=== PATIENT | female | born 1955 | race Caucasian/White ===

== ENCOUNTER 2017-09-10 09:08 | Emergency (ER) | payer BC ==
[2017-09-10 09:38] VITALS: BP 190/97
--- NOTE | 2017-09-10 11:19 | UC ---
Skin Complaint HPI - HPI Summary HPI Summary: Patient presents to the urgent care with chief complaint of 2 small ulcerations to the right volar side of the forearm. She states she was in poison leta a few days ago, and had scrubbed the vesicles off last night which created 2 small ulcers. She has been using an [id number] calamine lotion/poison leta treatment and was concerned that it had gotten into the ulcer. She is concerned due to the fact this medication is to the for topical use only. She has applied Band-Aids over the past 2 days over the ulcers. Denies any itching or pain. Denies any erythema or warmth around the ulcers. - History of Current Complaint Chief Complaint: UCSkin Time Seen by Provider: 09/10/17 10:03 Stated Complaint: SKIN COMPLAINT Hx Obtained From: Patient ?: No Onset/Duration: Sudden Onset Skin Exposure Onset/Duration: Hours Ago Timing: Constant Onset Severity: Mild Current Severity: Mild Pain Intensity: 1 Pain Scale Used: 0-10 Numeric Location: Other - forearm Character: Redness Aggravating Factor(s): Nothing Alleviating Factor(s): OTC Meds, Antihistamines, Cold Compresses Associated Signs & Symptoms: Positive: Negative Related History: Possible Reaction to: Environmental Exposure - Allergy/Home Medications Allergies/Adverse Reactions: Allergies Allergy/AdvReac Type Severity Reaction Status Date / Time No Known Allergies Allergy Verified 09/10/17 09:24 Home Medications: Home Medications Pramoxine HCl/Calamine [Calamine Medicated Lotion] 177 ml TP ONCE 09/10/17 [ History Confirmed 09/10/17] Review of Systems Constitutional: Negative Skin: Other - 2 small ulcers to the R forearm Respiratory: Negative Cardiovascular: Negative Motor: Negative Neurovascular: Negative Musculoskeletal: Negative Neurological: Negative Is Patient Immunocompromised?: No All Other Systems Reviewed And Are Negative: Yes PMH/Surg Hx/FS Hx/Imm Hx Previously Healthy: Yes Other History Of: Negative For: Anticoagulant Therapy - Surgical History Surgical History: Yes Surgery Procedure, Year, and Place: 1981 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 2006 LAPAROSCOPIC CHOLECYSTECTOMY, [facility] [place]. jan 2012-screw and pins to left great toe - Social History Occupation: Unemployed Lives: With Family Alcohol Use: None Substance Use Type: None Smoking Status (MU): Former Smoker Physical Exam Triage Information Reviewed: Yes Appearance: Well-Appearing, No Pain Distress, Well-Nourished Vital Signs: Initial Vital Signs Temp 97.9 F 09/10/17 09:28 Pulse 76 09/10/17 09:28 Resp 18 09/10/17 09:28 BP 190/97 09/10/17 09:28 Pulse Ox 97 09/10/17 09:28 Vital Signs Reviewed: Yes Eye Exam: Normal Eyes: Positive: Conjunctiva Clear Neck exam: Normal Neck: Positive: Supple, No Lymphadenopathy Respiratory Exam: Normal Respiratory: Positive: Chest non-tender Musculoskeletal Exam: Normal Musculoskeletal: Positive: Strength Intact Neurological: Positive: Alert, Muscle Tone Normal Psychological: Positive: Normal Response To Family Skin: Positive: significant lesion(s) - 2 small ulcers to the forearm from broken blisters Course/Dx - Course Course Of Treatment: 1 small ulcer is 1 cm in diameter, one small ulcer is approximately 0.3 cm. I have advised antibiotic ointment to the area and cover with a Band-Aid. I have discussed not popping the vesicles due to worsening symptoms. She is able to continue with the calamine lotion/poison leta treatment around the wounds to the other vesicles. - Diagnoses Provider Diagnoses: Ulceration Discharge - Sign-Out/Discharge Documenting (check all that apply): Discharge/Admit/Transfer - Discharge Plan Condition: Stable Disposition: HOME Patient Education Materials: Poison Leta (ED), Cold Compress or Soak (ED) Referrals: Rafaela Mejia MD [Primary Care Provider] - Additional Instructions: Antibiotic ointment to the area and cover with bandaid Do not scrub If there are vesicles/blisters - do not break these open Cover with a bandage until all begin to heal Do not scratch May continue with over the counter cream - Billing Disposition and Condition Condition: STABLE Disposition: HOME
== END 2017-09-10 10:25 | disposition home or self-care (01) ==
LOC: UCEAST 09:08
DX: L98.499 Non-pressure chronic ulcer of skin of other sites with unspecified severity (principal); Z87.891 Personal history of nicotine dependence
CPT/HCPCS: 99211; G0463

== ENCOUNTER 2019-08-07 12:46 | Emergency (ER) | payer MEDICARE, BC ==
--- NOTE | 2019-08-07 13:22 | UC ---
Lower Extremity/Ankle HPI - HPI Summary HPI Summary: 64 y/o female presents to the urgent care c/o medial aspect of her Left knee pain s/p twisting her knee while doing shopping. Pt reports Hx of DVT on the same knee and she Hx of varicose veins in the same area. Pt states pain at rest is 0/10 and 5/10 when she walks. Pt is concern about DVT. She takes baby aspirin daily. She has not taken anything to alleviate symptoms. Pt denies bruise, swelling over her left knee, calf pain, SOB, chest pain, COTTON, dizziness, visual changes, abdominal pain, N/V/D, fever, cough, or sick contacts. Pt declines pain medication for now. - History of Current Complaint Chief Complaint: UCLowerExtremity Stated Complaint: LEG PAIN Time Seen by Provider: 08/07/19 13:20 Hx Obtained From: Patient ?: No Onset/Duration: Sudden Onset, Lasting Hours - 4 hrs, Still Present Severity Initially: Mild Severity Currently: Mild Pain Intensity: 5 - w/ movement Pain Scale Used: 0-10 Numeric Aggravating Factor(s): Ambulation Alleviating Factor(s): Rest - Pain at rest is 0/10 Able to Bear Weight: Yes - Risk Factors Gout Risk Factors: Negative DVT Risk Factors: Prior DVT Septic Arthritis Risk Factor: Negative - Allergies/Home Medications Allergies/Adverse Reactions: Allergies Allergy/AdvReac Type Severity Reaction Status Date / Time No Known Allergies Allergy Verified 08/07/19 13:10 Home Medications: Home Medications Aspirin [Aspirin Low Dose] 81 mg PO DAILY 11/23/14 [History Confirmed 08/07/19] PMH/Surg Hx/FS Hx/Imm Hx Previously Healthy: Yes Cardiovascular History: Deep Vein Thrombosis Other History Of: Negative For: Anticoagulant Therapy - Surgical History Surgical History: Yes Surgery Procedure, Year, and Place: 1981 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 2006 LAPAROSCOPIC CHOLECYSTECTOMY, [facility] [place]. jan 2012-screw and pins to left great toe - Family History Known Family History: Positive: Cardiac Disease, Hypertension - Social History Occupation: Retired Lives: With Family Alcohol Use: None Substance Use Type: None Smoking Status (MU): Former Smoker Length of Time of Smoking/Using Tobacco: 20 years When Did the Patient Quit Smoking/Using Tobacco: 2011 Review of Systems All Other Systems Reviewed And Are Negative: Yes Constitutional: Positive: Negative Skin: Positive: Negative Eyes: Positive: Negative ENT: Positive: Negative Respiratory: Positive: Negative Cardiovascular: Positive: Negative Gastrointestinal: Positive: Negative Genitourinary: Positive: Negative Motor: Positive: Negative Neurovascular: Positive: Negative Musculoskeletal: Positive: Decreased ROM - left knee, Other: - left knee pain s/ p injury Neurological/Mental Status: Positive: Negative Psychological: Positive: Negative Is Patient Immunocompromised?: No Physical Exam - Summary Physical Exam Summary: Vital Signs Reviewed: Yes Appearance: Well-Appearing, No Pain Distress, Well-Nourished, Obese female sitting comfortably in the examining table w/o any apparent pain distress Eyes: Positive: Conjunctiva Clear - PERRLA< DANGELO, fundi grossly WNL ENT: Positive: Normal ENT inspection, Hearing grossly normal, Pharynx normal, TMs normal, Uvula midline Neck: Positive: Supple, Nontender, No Lymphadenopathy Respiratory: Positive: Chest non-tender, Lungs clear, Normal breath sounds, No respiratory distress Cardiovascular: Positive: RRR, No Murmur, Pulses Normal, Brisk Capillary Refill Abdomen Description: Positive: Nontender, No Organomegaly, Soft. Negative: CVA Tenderness (R), CVA Tenderness (L) Bowel Sounds: Positive: Present Extremities:L extremity with/without deformity or asymmetry when compared to the R. No soft tissue swelling or edema. No overlying erythema, warmth, discoloration. No lesions or break in skin integrity. Diameter of both calves 45cm. Soft tissues of posterior lower legs are soft, supple, Positive palpable cords w/ evidence of thrombophlebitis on both legs LF>RT specially on the medial aspect of the left knee. positive tenderness on palpation on the same area. No evidence of gangrene or compartment syndrome. Medial thigh is without soft tissue swelling or tender to palpation. Negative Homans sign on both legs. Possible superficial thrombophlebitis with palpable, tender cords on both legs . No proximal lymphangitis or lymphadenopathy. Left Knee: Pt is able to bear weight and ambulate with limping. No surface trauma, soft tissue swelling, or obvious effusion. No overlying erythema or warmth. The L knee is without obvious asymmetry or deformity when compared with the R knee. Decreased ROM of LF knee due to pain. No tenderness to palpation of the patella, no effusion or ballottement. No tenderness over the infrapatellar tendon. Point tenderness over the medial joint line, No tenderness over the medial or lateral tibial plateaus. No tenderness over the proximal fibular head, No tenderness, fullness or mass of the popliteal fossa. No quadriceps tenderness. No laxity of the ACL. PCL, MCL, or LCL. no collateral ligament laxity to valgus or varus stress. Negative Denae/Drawer sign. unable to perform Lian due to pain. Positive sensation over B/l lower legs, positive pulses, capillary refill intact and brisk. Neuro: A&O x4, GCS 15, CN II-XII grossly intact. Motor and sensory exam nonfocal. Reflexes are symmetric. Speech is clear and gait steady. Psychological Exam: Normal Skin Exam: Normal Triage Information Reviewed: Yes Lower Extremity Course/Dx - Course Course Of Treatment: 64 y/o female presents to the urgent care c/o medial aspect of her Left knee pain s/p twisting her knee while doing shopping. Pt reports Hx of DVT on the same knee and she Hx of varicose veins in the same area. Pt states pain at rest is 0/10 and 5/10 when she walks. Pt is concern about DVT. She takes baby aspirin daily. She has not taken anything to alleviate symptoms. Pt denies bruise, swelling over her left knee, calf pain, SOB, chest pain, COTTON, dizziness, visual changes, abdominal pain, N/V/D, fever, cough, or sick contacts. Pt declines pain medication for now. Hx obtained. Pt is hemodynamically stable, A& OX3, VS: WNL except for her BP: 181/104 taken by me manually. Pt w/ possible thombophlebitis and left knee sprain. Since Hx of DVT. Duplex ultrasound ordered to r/o DV: IMPRESSION: 1. NO EVIDENCE FOR DEEP VENOUS THROMBOSIS. 2. A VARICOSE VEIN IS SEEN IN THE PAINFUL REGION OF INTEREST. as per radiologist. . Left knee X-ray ordered:IMPRESSION: 1. Mild patellofemoral degenerative changes without radiographically apparent acute abnormality of the right knee. 2. Density along the medial aspect subcutaneous tissue could be consistent with varicose veins. Please correlate to physical examination and symptoms of varicose vein disease. If clinically warranted superior characterization of superficial veins could be made with a venous reflux sonogram on a nonemergent basis. If the patient's symptoms persist, follow-up imaging is recommended as per radiologist. Pt educated on results and explained the importance of wearing compression stockings and use the crutches she has at home to avoid weight bearing. Advised to elevate her knee and applu cold compresses and avoid standing for long periods of time. Pt with also possible left knee sprain and mild osteoarthritis. She was recommended to taken Tylenol PO and f/u w/ Orthopedic DR Lou if not improvement of symptoms in 1 week. completely resolved. P's BP is very elevated. However at this moment she is asymptomatic and states she has been eating a lot of salty food lately. Pt strongly advised to decrease salt in your diet, monitor BP and if it continues to be elevated please f/u with a PCP form the [facility] [place] for further management. However is she develops chest pain, dizziness, visual disturbances, SOB, or severe COTTON to go immediately to the ER for further management. D/C instructions explained, Pt understood and agreed w/ plan of care and left clinic, hemodynamically stable, A &OX3 and ambulating. - Differential Dx/Diagnosis Differential Diagnosis/HQI/PQRI: Arthritis, Contusion, DVT, Fracture (Closed), Sprain, Strain, Tendonitis, Other - variconse veins Provider Diagnosis: Left knee sprain, Varicose veins of both lower extremities, Elevated BP without diagnosis of hypertension, Osteoarthritis of left knee Discharge ED - Sign-Out/Discharge Documenting (check all that apply): Patient Departure - D/C home All imaging exams completed and their final reports reviewed: Yes - Discharge Plan Condition: Stable Disposition: HOME Patient Education Materials: Knee Sprain (ED), Superficial Thrombophlebitis (ED ) Referrals: [facility] [place] PHYSICIAN REFERRAL [Outside] - 2 Days Amie Lou MD [Medical Doctor] - 1 Week Additional Instructions: 1-Please take Tylenol PO q6hrs prn as directed to alleviate pain and swelling. 2-Please apply ice, Use your crutches you have at home to avoid ivana bearing for 1 week. 3- Please wear compression stocking which will help with the varicose pain and avoid blood stasis. 4- Please f/u with Orthopedic DR Lou or your PCP in 1 week is not improvement of symptoms for further evaluation and treatment. 5-Your BP is very elevated today. Please decrease salt in your diet, monitor BP and if it continues to be elevated please f/u with a PCP form the [facility] [place] for further evaluation and treatment you may be developing HTN. At this moment you are asymptomatic, but If you develop chest pain, dizziness, visual disturbances , SOB, or severe COTTON please go immediately to the ER for further management. - Billing Disposition and Condition Condition: STABLE Disposition: Home
[2019-08-07 15:02] VITALS: BP 194/110
== END 2019-08-07 15:30 | disposition home or self-care (01) ==
LOC: UCEAST 12:46
DX: S83.92XA Sprain of unspecified site of left knee, initial encounter (principal); X50.1XXA Overexertion from prolonged static or awkward postures, initial encounter; Y93.89 Activity, other specified; Y92.512 Supermarket, store or market as the place of occurrence of the external cause; M17.12 Unilateral primary osteoarthritis, left knee; I83.93 Asymptomatic varicose veins of bilateral lower extremities; R03.0 Elevated blood-pressure reading, without diagnosis of hypertension; Z79.82 Long term (current) use of aspirin; Z86.718 Personal history of other venous thrombosis and embolism; Z87.891 Personal history of nicotine dependence
CPT/HCPCS: 99212; G0463

== ENCOUNTER 2023-11-07 11:40 | Inpatient (IN) ==
[2023-11-07 12:49] LABS: ABS Lymphocytes 0.8 10^3/uL (1.0-4.8); ABS Monocytes 0.7 10^3/uL (0.0-0.9); ABS Neutrophils 9.8 10^3/uL (1.5-7.6); ABS Nucleated RBC 0.01 10^3/ul; Eosinophil % 0.2 %; Hematocrit 37.3 % (35-45); Hemoglobin 12.8 g/dL (11.5-14.3); Lymphocyte % 6.7 %; Mean Corpuscular Hemoglobin 32.3 pg (27-33); Mean Corpuscular Hgb Conc 34.2 g/dL (31-36); Mean Corpuscular Volume 94.6 fL (80-97); Mean Platelet Volume 7.8 fL (7.5-11.2); Nucleated Red Blood Cells % 0.1 %/100WBC (0.0-0.8); Platelet Count 259 10^3/uL (150-450); Red Blood Count 3.95 10^6/uL (3.63-4.92); Red Cell Distribution Width 13.3 % (12-17); White Blood Count 11.2 10^3/uL (3.8-11.8)
[2023-11-07 12:56] LABS: INR 0.97 (0.83-1.13)
[2023-11-07 13:22] LABS: High Sens Troponin Baseline 12 pg/mL (<15)
[2023-11-07 13:40] LABS: ALT 20 U/L (7-52); AST 41 U/L (13-39); Albumin 4.6 g/dL (3.2-5.2); Albumin/Globulin Ratio 1.6 (1-3); Alcohol, S < 13 mg/dL (<13); Alkaline Phosphatase 98 U/L (35-149); Anion Gap 10 mmol/L (2-16); Blood Urea Nitrogen 22 mg/dL (6-24); CO2 Carbon Dioxide 24 mmol/L (22-32); Calcium 9.7 mg/dL (8.6-10.3); Chloride 102 mmol/L (101-111); Creatine Kinase 751 U/L (10-223); Creatinine, Serum 0.77 mg/dL (0.51-0.95); Globulin 2.8 g/dL (2-4); Glucose 83 mg/dL (70-100); Lipase < 10 U/L (11.0-82.0); Potassium 3.3 mmol/L (3.5-5.0); Sodium 136 mmol/L (135-145); Total Bilirubin 1.8 mg/dL (0.2-1.0); Total Protein 7.4 g/dL (6.4-8.9); eGFR CKD-EPI 83.5 (>60)
[2023-11-07 13:55] LABS: TSH Ultra Thyroid Stim Horm 0.48 mcIU/mL (0.34-5.60)
[2023-11-07 14:37] LABS: High Sensitivity Troponin 1 Hr 12 pg/mL (<15)
[2023-11-07] MEDS: Iohexol 300 (CONTRAST) 10 ML SDV IV ONE (15:21)
[2023-11-07] MEDS: Lactated Ringers 1000 ml BAG 1,000 ML IV ONE (15:58)
[2023-11-07] MEDS: Clotrimazole 1% CREAM 30 gm TOPICAL ONE (16:03)
[2023-11-07 16:47] LABS: Urine Appearance Clear; Urine Benzodiazepine Screen None Detected (None Detect); Urine Bilirubin Negative (Negative); Urine Blood Trace (Negative); Urine Cannabinoids Screen None Detected (None Detect); Urine Color Light-Yellow; Urine Glucose Negative (Negative); Urine Ketones 1+ (Negative); Urine Nitrite 2+ (Negative); Urine Opiates Screen None Detected (None Detect); Urine Protein Trace (Negative); Urine Specific Gravity 1.027 (1.002-1.030); Urine Urobilinogen Negative (Negative)
[2023-11-07 18:10] LABS: Urine Bacteria 1+ /HPF (Absent); Urine Red Blood Cell Trace(0-2/hpf) /HPF (0-Trace); Urine Squamous Epithelial Cell Present /HPF (Absent); Urine White Blood Cell Trace(0-5/hpf) /HPF (0-Trace)
[2023-11-08 13:14] LABS: C Reactive Protein 15.36 mg/L (<8.01)
[2023-11-08] MEDS ORDERED: Thiamine 100 MG/ML 2 ml VIAL (200 mg) IV ONE (13:16)
[2023-11-08] MEDS: Thiamine IV 100 MG in NS 0.9% 50 ML IV ONE (14:14)
[2023-11-08] MEDS: Enoxaparin 40 MG/0.4 ML SYR SUBCUT SCH (20:33)
[2023-11-09] MEDS: Memantine XR 14 mg CAP PO SCH (07:46)
[2023-11-09] MEDS: cefTRIAXone 1 gm/50 mL D5W 1 GM/50 ML BAG IV ONE (23:00)
[2023-11-10] MEDS ORDERED: Thiamine 100 MG/ML 2 ml VIAL (200 mg) IV SCH (09:00)
[2023-11-10] MEDS: Thiamine IV 100 MG in NS 0.9% 50 ML Q24H IV SCH (11:52)
[2023-11-10 12:04] LABS: ABS Eosinophils 0.3 10^3/uL (0.0-0.5); ABS Lymphocytes 1.2 10^3/uL (1.0-4.8); ABS Monocytes 0.5 10^3/uL (0.0-0.9); ABS Neutrophils 4.1 10^3/uL (1.5-7.6); Eosinophil % 4.2 %; Hematocrit 32.6 % (35-45); Hemoglobin 11.3 g/dL (11.5-14.3); Mean Corpuscular Hemoglobin 33.1 pg (27-33); Mean Corpuscular Hgb Conc 34.6 g/dL (31-36); Mean Corpuscular Volume 95.8 fL (80-97); Mean Platelet Volume 7.8 fL (7.5-11.2); Platelet Count 238 10^3/uL (150-450); Red Blood Count 3.41 10^6/uL (3.63-4.92); Red Cell Distribution Width 13.2 % (12-17); White Blood Count 6.2 10^3/uL (3.8-11.8)
[2023-11-10 13:01] LABS: ALT 31 U/L (7-52); Albumin 3.9 g/dL (3.2-5.2); Albumin/Globulin Ratio 1.3 (1-3); Alkaline Phosphatase 79 U/L (35-149); Anion Gap 6 mmol/L (2-16); Blood Urea Nitrogen 12 mg/dL (6-24); CO2 Carbon Dioxide 28 mmol/L (22-32); CRP High Sensitivity 6.82 mg/L (<2.00); Chloride 105 mmol/L (101-111); Creatinine, Serum 0.65 mg/dL (0.51-0.95); Globulin 2.9 g/dL (2-4); Glucose 119 mg/dL (70-100); Sodium 139 mmol/L (135-145); Total Bilirubin 0.6 mg/dL (0.2-1.0); Total Protein 6.8 g/dL (6.4-8.9); eGFR CKD-EPI 95.2 (>60)
[2023-11-11] MEDS ORDERED: Thiamine 100 MG/ML 2 ml VIAL (200 mg) ONE (08:15)
[2023-11-12] MEDS: Haloperidol 5 mg/ml SDV IV/IM 5 MG/ML AMP IV SLOW PU ONE (16:56)
[2023-11-12 20:35] LABS: Folate > 20.00 ng/mL (5.90-24.80)
[2023-11-12 20:36] LABS: Vitamin B12 1136 pg/mL (180-914)
[2023-11-17 05:25] VITALS: BP 119/83
== END 2023-11-17 12:50 | DRG 884 ==
LOC: ED 11:40 → EDHOLD 11:40 → SUATTDRO 11-12 18:58 → MED 11-12 18:58 → OBSVTOIN 11-12 18:58 → MED 11-13 02:40
PROVIDERS: ADMIT Student in an Organized Health Care Education/Training Program; ATTEND Internal Medicine